=== PATIENT | male | born 1955 | race Caucasian/White ===

== ENCOUNTER 2016-09-22 07:51 | Day surgery (SDC) | payer BC ==
[~2016-09-22 07:51] MED LIST: Metoclopramide 10 MG/2 ML SDV IV PRN; Sodium Chloride 0.9% 1,000 ML IV SCH; Sodium Chloride 0.9% 10 ML Syringe FLUSH PRN
[2016-09-22] MEDS ORDERED: Propofol 200 MG/20 ML SDV ONE (10:35)
[2016-09-22 12:46] VITALS: BP 154/88
--- NOTE | 2016-09-22 14:45 | OR ---
DATE OF OPERATION: 09/22/2016 PREOPERATIVE DIAGNOSIS: Screening colonoscopy. POSTOPERATIVE DIAGNOSIS: Screening colonoscopy. ANESTHESIA: MAC. OPERATIVE PROCEDURE: Colonoscopy. INDICATIONS FOR PROCEDURE: The patient is a 61-year-old male, here for screening colonoscopy. The patient has had previous colonoscopy approximately 10 years ago, which was normal. No polyps seen. The patient has not had any change in bowel habits since that time. DESCRIPTION OF PROCEDURE: Informed consent was obtained from the patient. The patient was taken to the operating room and placed on the table in left lateral decubitus position. Monitored anesthesia care was applied. Digital rectal exam reveals no masses. Good rectal tone. The colonoscope was then advanced through the anus and directed towards the cecum. We were able to reach was cecum, which was identified by the appendiceal orifice as well as the ileocecal valve. The scope was slowly withdrawn. No masses, no polyps, no AV malformations, and no areas of inflammation were identified. No diverticulosis either. The scope was retroflexed in the rectum, which was unremarkable as well. The colonoscope was then removed. The patient was brought to the recovery room in good condition. He tolerated the procedure well. FINDINGS: Normal colonoscopy. RECOMMENDATIONS: We would recommend repeat screening colonoscopy in 10 years. GAYATRI /[id number]
== END 2016-09-22 12:40 | disposition home or self-care (01) ==
LOC: LB.SDS 07:51
PROVIDERS: ATTEND Surgery
DX: Z12.11 Encounter for screening for malignant neoplasm of colon (principal); I10 Essential (primary) hypertension
CPT/HCPCS: 45378; J2704; J7040